=== PATIENT | female | born 1985 | race Two or more races ===

== ENCOUNTER 2022-08-27 02:04 | Emergency (ER) | payer MEDICAID ==
[~2022-08-27] VITALS: Ht 170.2 cm; Wt 200.0 kg
[2022-08-27] MEDS ORDERED: MINERAL OIL 90 ML BOTTLE TP ONE (02:15)
[2022-08-27] MEDS ORDERED: AMOX TR/POT CLAV 875 MG/125 MG TABLET PO ONE (03:15)
[2022-08-27] MEDS ORDERED: AmLODIPine BESYLATE 10 MG TABLET PO ONE (03:15)
[2022-08-27] MEDS ORDERED: PERTUSS(ACELL),DIPH,TET VAC/PF 0.5 ML SYRINGE IM. ONE (03:15)
[2022-08-27] MEDS ORDERED: AMOX1TAB16 PO (03:23)
[2022-08-27] MEDS ORDERED: AMLO-258 PO (03:23)
[2022-08-27 04:51] VITALS: BP 159/100
== END 2022-08-27 05:22 | disposition home or self-care (01) ==
LOC: EMS 02:07
DX: T16.2XXA Foreign body in left ear, initial encounter (principal); S80.812A Abrasion, left lower leg, initial encounter; I50.9 Heart failure, unspecified; I11.0 Hypertensive heart disease with heart failure; F17.210 Nicotine dependence, cigarettes, uncomplicated; Z98.890 Other specified postprocedural states; W55.03XA Scratched by cat, initial encounter; Y93.89 Activity, other specified; Y92.89 Other specified places as the place of occurrence of the external cause; Y99.8 Other external cause status
CPT/HCPCS: 90471; 90715; 99285